=== PATIENT | female | born 1980 | race American Indian/Alaskan Native ===

== ENCOUNTER 2019-10-24 21:36 | Emergency (ER) | payer BC, OTHER ==
[2019-10-24] MEDS ORDERED: ASPIRIN 325 MG TAB PO ONE (21:58)
[2019-10-24] MEDS ORDERED: FAMOTIDINE 20 MG/2 ML INJ IV ONE (22:51)
[2019-10-24] MEDS ORDERED: SODIUM CHLORIDE 0.9% 1000 ML 1,000 ML IV ONE (22:51)
[2019-10-24] MEDS ORDERED: MORPHINE 4 MG/1 ML INJ IV ONE (22:51)
[2019-10-24] MEDS ORDERED: ONDANSETRON 4 MG/2 ML INJ IV ONE (22:51)
--- NOTE | 2019-10-24 22:52 | Emergency Department Report ---
ED General Adult HPI - General Chief complaint: Chest Pain Stated complaint: SOB/CHEST PAIN PUI?: No Time Seen by Provider: 10/24/19 22:41 Source: patient, RN notes reviewed, old records reviewed Mode of arrival: Ambulatory Limitations: No Limitations - History of Present Illness Initial comments: The patient was evaluated in the emergency department for symptoms described in the history of present illness. He/she was evaluated in the context of the global COVID-19 pandemic, which necessitated consideration that the patient might be at risk for infection with the virus that causes COVID-19. Institutional protocols and algorithms that pertain to the evaluation of patients at risk for COVID-19 are in a state of rapid change based on information released by regulatory bodies including the CDC and federal and state organizations. These policies and algorithms were followed during the patient's care in the emergency department. Please note that these policies, procedures and recommendations changed on a rapid basis. During the entire history and physical examination, I am chaperoned/escorted by Jill Mcduffie The patient is a 39-year-old female. She is not known to myself previously. The patient presents to the ER today with a complaint of bilateral chest wall pain, epigastric pain, upper abdominal pain, nausea and vomiting, and shortness of breath. Her symptoms have been present for 5 days. Her chest wall pain is central, right-sided, and left-sided, and does not radiate to the back, arms or neck. There is no diaphoresis. She does not have exertional shortness of breath. She denies oral contraceptive use, leg pain, leg swelling, , and recent surgery. She has a distant history of hernia, as well as hernia repair, and has epigastric and bilateral upper quadrant abdominal pain. She was reportedly diagnosed with COVID 5 or 6 weeks ago, but has subsequently had negative tests in the past few weeks. She denies loss of taste and smell. No family history of DVT, pulmonary embolis m, or coronary artery disease that she is aware of. -: Gradual, days(s) Location: chest, abdomen Radiation: non-radiation Quality: aching Consistency: constant Improves with: rest Worsens with: movement - Related Data Previous Rx's Medication Instructions Recorded Last Taken Type Acetaminophen [Non-Aspirin Extra 500 mg PO Q6HR PRN #30 tablet 10/25/19 Unknown Rx Strength] Famotidine [Pepcid] 20 mg PO BID #60 tablet 10/25/19 Unknown Rx Metoclopramide [Reglan] 10 mg PO QID PRN #30 tablet 10/25/19 Unknown Rx Allergies Allergy/AdvReac Type Severity Reaction Status Date / Time No Known Allergies Allergy Unverified 07/28/14 19:28 ED Review of Systems ROS: Stated complaint: SOB/CHEST PAIN Other details as noted in HPI Constitutional: fever (Patient states she had a fever up to 105 degrees), malaise, weakness Eyes: denies: eye discharge Respiratory: cough, shortness of breath Cardiovascular: chest pain Gastrointestinal: abdominal pain, nausea, vomiting. denies: diarrhea Genitourinary: denies: dysuria Musculoskeletal: myalgia Neurological: weakness Psychiatric: anxiety Hematological/Lymphatic: denies: easy bleeding ED Past Medical Hx - Past Medical History Previous Medical History?: No - Surgical History Past Surgical History?: Yes Additional Surgical History: HERNIA - Social History Smoking Status: Current Every Day Smoker Substance Use Type: None - Medications Home Medications: Home Medications Medication Instructions Recorded Confirmed Last Taken Type Acetaminophen [Non-Aspirin Extra 500 mg PO Q6HR PRN #30 tablet 10/25/19 Unknown Rx Strength] Famotidine [Pepcid] 20 mg PO BID #60 tablet 10/25/19 Unknown Rx Metoclopramide [Reglan] 10 mg PO QID PRN #30 tablet 10/25/19 Unknown Rx ED Physical Exam - General Limitations: No Limitations General appearance: alert, in no apparent distress, obese - Head Head exam: Present: atraumatic, normocephalic - Eye Eye exam: Present: normal appearance, EOMI. Absent: nystagmus - ENT ENT exam: Present: normal exam, normal orophraynx, mucous membranes moist, normal external ear exam - Neck Neck exam: Present: normal inspection, full ROM. Absent: tenderness, meningismus - Respiratory Respiratory exam: Present: normal lung sounds bilaterally, chest wall tenderness. Absent: respiratory distress, wheezes, rales, rhonchi, stridor - Cardiovascular Cardiovascular Exam: Present: regular rate, normal rhythm, normal heart sounds. Absent: bradycardia, tachycardia, irregular rhythm, systolic murmur, diastolic murmur, rubs, gallop - GI/Abdominal GI/Abdominal exam: Present: soft, tenderness, other (There is epigastric and bilateral upper quadrant tenderness). Absent: distended, guarding, rebound, rigid, pulsatile mass - Extremities Exam Extremities exam: Present: normal inspection, full ROM, other (2+ pulses noted in the bilateral upper and lower extremities. There is no palpable cord. negative Homans sign. Muscular compartments are soft. The pelvis is stable.). Absent: pedal edema, calf tenderness - Back Exam Back exam: Present: normal inspection, full ROM. Absent: tenderness, CVA tenderness (R), CVA tenderness (L), paraspinal tenderness, vertebral tenderness - Neurological Exam Neurological exam: Present: alert, normal gait, other (No facial droop. Tongue midline. Extraocular movements intact bilaterally. Facial sensation intact to light touch in V1, V2, V3 distribution bilaterally. 5 and a 5 strength in 4 e xtremities. Sensation intact to light touch in 4 extremities.). Absent: motor sensory deficit - Psychiatric Psychiatric exam: Present: anxious - Skin Skin exam: Present: warm, dry, intact, normal color. Absent: rash ED Course Vital Signs 10/24/19 10/24/19 10/25/19 22:03 23:39 00:10 Temperature 98.5 F Pulse Rate 91 H Respiratory 17 17 Rate Blood Pressure 138/93 [Left] O2 Sat by Pulse 100 Oximetry - Reevaluation(s) Reevaluation #1: 10/25/19 00:12 Differential diagnosis, including but not limited to: GERD, gastritis, hiatal hernia, pneumonia, coronary artery disease, obstruction, pancreatitis, colitis, diverticulitis, pulmonary embolism Assessment and plan: 39-year-old female who is low risk for major adverse cardiac event as per heart score, with 5 days of chest pain which is reproduci ble, troponin negative x1, as per the [employer] clinical policy, myocardial infarction will be ruled out with 1 set of troponins/cardiac enzymes if symptoms present for greater than 8 hours. Patient also found to have left axis deviation and borderline left anterior f ascicular block, therefore, d-dimer sent, elevated, although patient low risk for pulmonary embolism by Wells criteria, not currently tachycardic, tachypneic/hypoxic, and she is PERC negative. CT scan of the chest will be obtained. Patient also has diffuse upper abdominal tenderness, and we will obtain CT scan of the abdomen pelvis. We treated her pain aggressively, and at the moment, she appears to be more comfortable, and is talking on a cellular phone. As per this institutions policy, protocols and procedures, if no emergent pathology identified on diagnostic imaging or laboratory testing, which we anticipate, patient may follow-up closely with outpatient cardiology to complete a cardiac risk ratification. To that end, patient's demographic information was transmitted to [facility] cardiology to facilitate and arrange outpatient cardiac risk ratification. Reevaluation #2: 10/25/19 00:52 No active vomiting. Feels improved. Belly soft on repeat exam. CT scan of the chest negative for acute findings. CT scan of the abdomen pelvis negative for acute findings. Discussed results with patient. She endorses that she is reliable to follow-up as an outpatient ED Medical Decision Making - Lab Data Result diagrams: 10/24/19 22:55 10/24/19 22:37 Vital Signs 10/24/19 10/24/19 10/25/19 22:03 23:39 00:10 Temperature 98.5 F Pulse Rate 91 H Respiratory 17 17 Rate Blood Pressure 138/93 [Left] O2 Sat by Pulse 100 Oximetry Lab Results 10/24/19 10/24/19 10/24/19 Range/Units 22:37 22:37 22:55 Hgb (10.1-14.3) gm/dl Hct (30.3-42.9) % Plt Count (140-440) K/mm3 PT 13.2 (12.2-14.9) Sec. INR 0.99 (0.87-1.13) D-Dimer 318.38 H (0-234) ng/mlDDU Sodium 138 (137-145) mmol/L Potassium 3.6 (3.6-5.0) mmol/L Chloride 99.1 (98-107) mmol/L Carbon Dioxide 20 L (22-30) mmol/L Anion Gap 23 mmol/L BUN 2 L (7-17) mg/dL Creatinine 0.7 (0.6-1.2) mg/dL Estimated GFR > 60 ml/min BUN/Creatinine Ratio 3 % Glucose 98 (65-100) mg/dL Calcium 8.8 (8.4-10.2) mg/dL Magnesium (1.7-2.3) mg/dL Total Bilirubin (0.1-1.2) mg/dL Direct Bilirubin (0-0.2) mg/dL Indirect Bilirubin mg/dL AST (5-40) units/L ALT (7-56) units/L Alkaline Phosphatase (35-129) units/L Total Creatine Kinase (30-135) units/L Troponin T < 0.010 (0.00-0.029) ng/mL Total Protein (6.3-8.2) g/dL Albumin (3.9-5) g/dL Albumin/Globulin Ratio % Lipase (13-60) units/L HCG, Qual Negative (Negative) 10/24/19 10/24/19 10/24/19 Range/Units 22:55 22:55 23:55 Hgb 13.7 (10.1-14.3) gm/dl Hct 41.5 (30.3-42.9) % Plt Count 345 (140-440) K/mm3 PT (12.2-14.9) Sec. INR (0.87-1.13) D-Dimer (0-234) ng/mlDDU Sodium (137-145) mmol/L Potassium (3.6-5.0) mmol/L Chloride (98-107) mmol/L Carbon Dioxide (22-30) mmol/L Anion Gap mmol/L BUN (7-17) mg/dL Creatinine (0.6-1.2) mg/dL Estimated GFR ml/min BUN/Creatinine Ratio % Glucose (65-100) mg/dL Calcium (8.4-10.2) mg/dL Magnesium 2.10 (1.7-2.3) mg/dL Total Bilirubin 0.60 (0.1-1.2) mg/dL Direct Bilirubin < 0.2 (0-0.2) mg/dL Indirect Bilirubin 0.4 mg/dL AST 18 (5-40) units/L ALT 16 (7-56) units/L Alkaline Phosphatase 118 (35-129) units/L Total Creatine Kinase 102 (30-135) units/L Troponin T (0.00-0.029) ng/mL Total Protein 7.4 (6.3-8.2) g/dL Albumin 3.9 (3.9-5) g/dL Albumin/Globulin Ratio 1.1 % Lipase 24 23 (13-60) units/L HCG, Qual (Negative) - EKG Data -: EKG Interpreted by Dc EKG shows normal: sinus rhythm Rate: normal - EKG Data When compared to previous EKG there are: previous EKG unavailable 10/25/19 00:11 Sinus rhythm, 87 bpm, there is a left axis deviation, there is low voltage, the QTC is prolonged, the EKG is abnormal, the EKG is not a STEMI. - Radiology Data Radiology results: pending, report reviewed CT scan of the chest: CT scan of the abdomen pelvis: X-ray of the chest: Negative for acute findings. Print Report Referring Physician: MATTHEW CADET Patient Name: JEANETTE CHRISTIANSON Date of : 1980 Sex: Female Report Date: 2019-10-25 Report Status: Finalized Findings [facility] [address] [place] [address] Cat Scan Report Signed Patient: JEANETTE CHRISTIANSON MR#: [id number] : 1980 Acct:[id number] Age/Sex: 39 / F ADM Date: 10/24/19 Loc: ED A ttending Dr: Ordering Physician: MATTHEW CADET MD Date of Service: 10/24/19 Procedure(s): CT angio chest Accession Number(s): [id number] cc: MATTHEW CADET MD CT angio chest, CT abdomen pelvis w con INDICATION / CLINICAL INFORMATION: chest pain, dyspnea, + d dimer. Abdominal pain. TECHNIQUE: Axial CT images were obtained after injection of Omnipaque 350, 100 cc IV contrast using CTA protocol. 3 plane MIP / 3D reconstructions were produced. All CT scans at this location are performed using CT dose reduction for ALARA by means of automated exposure control. COMPARISON: None available. CTA chest: The lungs contain no mass, infiltrate or pleural fluid. Negative for mediastinal mass or adenopathy. No aneurysm, dissection or pulmonary embolus. CT ABDOMEN: The parenchymal organs are unremarkable in appearance. Negative for abdominal mass, fluid or inflammation. The bowel is not dilated or thickened. Noninflamed diverticula are seen at the descending and sigmoid colon's. Diastases of the rectus muscles is associated with eventration and superimposed ventral hernia. No obstruction. The appendix is normal. CT PELVIS: Prominent cervix containing several cysts. Negative for pelvic mass, fluid or inflammation. IMPRESSION: 1. Negative for pulmonary embolus or pneumonia. 2. Nonobstructing ventral hernia. 3. Noninflamed colonic diverticulosis. Signer Name: Yovanny Sprague MD Signed: 10/25/2019 12:43 AM Workstation Name: [id number] Transcribed By: DINA Dictated By: Yovanny Sprague MD Electronically Authenticated By: Yovanny Sprague MD Signed Date/Time: 10/25/1942 DD/ TD/TT: Critical care attestation.: If time is entered above; I have spent that time in minutes in the direct care of this critically ill patient, excluding procedure time. ED Disposition Clinical Impression: Chest wall pain, Acute abdominal pain, History of nausea and vomiting Disposition: - TO HOME OR SELFCARE Is pt being admited?: No Does the pt Need Aspirin: No Condition: Stable Additional Instructions: Avoid consumption of Motrin, ibuprofen, Naprosyn, Aleve, heavy and spicy foods. Avoid consumption of tobacco, smoke products, and alcohol. Take the prescribed medications as needed and directed. 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 For the patient's convenience, her information was transmitted to our local cardiology practice, [facility] cardiology, and the patient should be receiving a phone call from the group to arrange close outpatient follow-up. However, we recommend the patient call the group first thing in the morning to confirm and arrange close outpatient follow-up. Do not take metformin medication for the next 2 days, if patient takes this medication. Please return to the emergency room right away with new pain, worsening pain, migration of pain, projectile vomiting, change in mental status, confusion, inability to tolerate liquid feeds, new, worsened or different symptoms not present on the initial emergency room evaluation Prescriptions: Acetaminophen [Non-Aspirin Extra Strength] 500 mg PO Q6HR PRN #30 tablet PRN Reason: Pain , Severe (7-10) Famotidine [Pepcid] 20 mg PO BID #60 tablet Metoclopramide [Reglan] 10 mg PO QID PRN #30 tablet PRN Reason: Nausea Referrals: LAY SMYTH MD [Staff Physician] - 3-5 Days LIZZIE RALPH MD [Staff Physician] - 3-5 Days [facility] [Provider Group] - 3-5 Days
[2019-10-24 23:20] LABS: INR 0.99 (0.87-1.13)
[2019-10-24 23:28] LABS: Blood Urea Nitrogen 2 mg/dL (7-17); Calcium 8.8 mg/dL (8.4-10.2); Hemolysis Index 10
[2019-10-24 23:32] LABS: BUN/Creatinine Ratio 3
[2019-10-24 23:35] LABS: Hematocrit 41.5 % (30.3-42.9); Hemoglobin 13.7 gm/dl (10.1-14.3)
--- NOTE | 2019-10-24 23:57 | XRay Report ---
CHEST 1 VIEW INDICATION: Chest Pain. COMPARISON: None. FINDINGS: Support devices: None. Heart: Within normal limits. Lungs/Pleura: No acute air space or interstitial disease. Additional findings: None. IMPRESSION: No acute abnormality. Signer Name: Yovanny Sprague MD Signed: 10/24/2019 11:53 PM Workstation Name: [id number]
[2019-10-25 00:09] LABS: Alanine Aminotransferase 16 units/L (7-56); Albumin 3.9 g/dL (3.9-5)
[2019-10-25 00:10] LABS: Bilirubin,Direct < 0.2 mg/dL (0-0.2)
--- NOTE | 2019-10-25 00:48 | Cat Scan Report ---
CT angio chest, CT abdomen pelvis w con INDICATION / CLINICAL INFORMATION: chest pain, dyspnea, + d dimer. Abdominal pain. TECHNIQUE: Axial CT images were obtained after injection of Omnipaque 350, 100 cc IV contrast using CTA protocol . 3 plane MIP / 3D reconstructions were produced. All CT scans at this location are performed using C T dose reduction for ALARA by means of automated exposure control. COMPARISON: None available. CTA chest: The lungs contain no mass, infiltrate or pleural fluid. Negative for mediastinal mass or a denopathy. No aneurysm, dissection or pulmonary embolus. CT ABDOMEN: The parenchymal organs are unremarkable in appearance. Negative for abdominal mass, fluid or inflammation. The bowel is not dilated or thickened. Noninflamed diverticula are seen at the desc ending and sigmoid colon's. Diastases of the rectus muscles is associated with eventration and superimposed ventral hernia. No ob struction. The appendix is normal. CT PELVIS: Prominent cervix containing several cysts. Negative for pelvic mass, fluid or inflammation . IMPRESSION: 1. Negative for pulmonary embolus or pneumonia. 2. Nonobstructing ventral hernia. 3. Noninflamed colonic diverticulosis. Signer Name: Yovanny Sprague MD Signed: 10/25/2019 12:43 AM Workstation Name: [id number]
[2019-10-25 01:17] VITALS: BP 135/81
[2019-10-25 01:18] LABS: Bacteria,Urine 2+ /HPF (Negative); Bilirubin,Urine NEG (Negative); Blood,Urine LG (Negative); Color,Urine Yellow (Yellow); Mucus,Urine 1+ /HPF; Protein,Urine <15 mg/dL mg/dL (Negative); Urobilinogen,Urine < 2.0 mg/dL (<2.0)
[2019-10-25] MEDS ORDERED: SUCRALFATE 1 GM/10 ML ORAL LIQD PO ONE (01:18)
[2019-10-25] MEDS ORDERED: NITROFURANTOIN MONOHYD/M-CRYST 100 MG CAP PO ONE (01:24)
== END 2019-10-25 02:10 | disposition home or self-care (01) ==
LOC: ED 21:36
DX: R07.89 Other chest pain (principal); R10.13 Epigastric pain; R11.2 Nausea with vomiting, unspecified; F17.200 Nicotine dependence, unspecified, uncomplicated; Z98.890 Other specified postprocedural states; Z79.899 Other long term (current) drug therapy
CPT/HCPCS: 36415; 71045; 71275; 74177; 80048; 80076; 81001; 82550; 83690; 83735; 84484; 84703; 85014; 85018; 85049; 85379; 85610; 87086; 93005; 96361; 96374; 96375; 99285; J2270; J2405; J7030; Q9967